=== PATIENT | male | born 1940 | race Caucasian/White ===

== ENCOUNTER 2017-11-16 04:44 | Outpatient (CLI) | payer SELFPAY ==
[2017-11-16 08:31] LABS: HEMOGLOBIN A1C 5.6 % (4.5-6.2)
[2017-11-16 08:45] LABS: CHOL/HDL RATIO 2.48 (0.00-4.99)
== END 2017-11-16 23:59 | disposition home or self-care (01) ==
LOC: HW HEART 04:44
DX: Z13.6 Encounter for screening for cardiovascular disorders (principal); I48.91 Unspecified atrial fibrillation; R00.2 Palpitations
CPT/HCPCS: 36415

== ENCOUNTER 2024-08-14 08:52 | Day surgery (SDC) | payer MEDICARE ==
[2024-08-10 11:39] LABS: BASOPHILS % (AUTO) 0.8 % (0-1); EOSINOPHILS # (AUTO) 0.1 X10'3 (0-0.9); EOSINOPHILS % (AUTO) 1.5 % (0-6); LYMPHOCYTES # (AUTO) 1.2 X10'3 (1.1-4.8); LYMPHOCYTES % (AUTO) 25.4 % (21-51); MEAN CORPUSCULAR HEMOGLOBIN 30.2 PG (27.0-31.0); MEAN CORPUSCULAR VOLUME 88.8 FL (78-98); MEAN PLATELET VOLUME 7.8 FL (7.4-10.4); MONOCYTES # (AUTO) 0.6 X10'3 (0-0.9); MONOCYTES % (AUTO) 13.2 % (2-12); NEUTROPHILS # (AUTO) 2.8 X10'3 (1.8-7.7); NEUTROPHILS % (AUTO) 59.1 % (42-75); PRE OP HEMATOCRIT 42.7 % (42.0-52.0); PRE OP HEMOGLOBIN 14.5 g/dL (14.0-17.9); PRE OP PLATELET COUNT 193 X10'3 (140-440); PRE OP WHITE BLOOD COUNT 4.7 10'3 (4.8-10.8); RED BLOOD COUNT 4.81 X10'6 (4.70-6.10); RED CELL DISTRIBUTION WIDTH 13.6 % (11.5-14.5)
[2024-08-10 13:00] LABS: ALBUMIN 4.1 G/DL (3.4-5.0); ALBUMIN/GLOBULIN RATIO 1.1 (1.1-1.5); ALKALINE PHOSPHATASE 82 IU/L (46-116); BLOOD UREA NITROGEN 13 MG/DL (7-18); BUN/CREATININE RATIO 15.1 (10.0-20.0); CALCIUM 8.9 MG/DL (8.5-10.1); CHLORIDE 103 MMOL/L (99-107); CREATININE 0.86 MG/DL (0.60-1.10); PRE OP ALT 29 U/L (30-65); PRE OP ANION GAP 8 (8-16); PRE OP AST 24 U/L (10-37); PRE OP BILIRUB, TOTAL 0.5 MG/DL (0.0-1.0); PRE OP GLUCOSE 96 MG/DL (70-104); PRE OP POTASSIUM 4.5 MMOL/L (3.4-5.1); PRE OP SODIUM 140 MMOL/L (135-145); TOTAL CARBON DIOXIDE 28.7 MMOL/L (24-32); TOTAL PROTEIN 7.8 G/DL (6.4-8.2); eGFR 85 ML/MIN
[2024-08-14] VITALS (9 sets, daily range): BP systolic 114–133; BP diastolic 65–89; PULSE 60–89; RESP 11–16; TEMP 96.5; O2SAT 93–97
[~2024-08-14] VITALS: Ht 177.8 cm; Wt 86.5 kg
[~2024-08-14 08:52] MED LIST: ALPR1TAB7 PO; APIX5TAB3 PO; AZEL137S4 BOTHNARES; COQ 10; FISH OIL; FLEC50TA PO; FLO0.4C PO; LEVO75TA PO; MAGNESIUM; PROBIOTIC; ROSU20TA98 PO; TUMERIC; VITAMIN C PO; VITAMIN D3; ZINC; ZOLP10TA PO
[2024-08-14] MEDS: ringers solution, lacted 1,000 ML IV SCH (09:34)
[2024-08-14] MEDS: famotidine 20mg tablet PO ONE (09:34)
[2024-08-14] MEDS: clindamycin 600mg/D5W 50ml 50 ML IV ONE (09:34)
[2024-08-14] MEDS ORDERED: LIDOcaine 2% (20mg/ml) 5ml vial ONE ×2 (09:42→10:07)
[2024-08-14] MEDS ORDERED: BUPIVAcaine/PF 2.5mg/ml (0.25%) 10ml vial ONE (09:42)
[2024-08-14] MEDS ORDERED: propofol 10mg/ml 20ml vial IV ONE (09:47)
[2024-08-14] MEDS ORDERED: fentaNYL/PF 50MCG/1 ML 2ML syringe ONE (09:56)
[2024-08-14] MEDS ORDERED: midazolam 1 mg/ML 2ml injection ONE (10:00)
== END 2024-08-14 11:18 | disposition home or self-care (01) ==
LOC: PRE-OP 08:52
PROVIDERS: ATTEND Orthopaedic Surgery Hand Surgery
DX: G56.01 Carpal tunnel syndrome, right upper limb (principal); I10 Essential (primary) hypertension; F41.9 Anxiety disorder, unspecified; E78.5 Hyperlipidemia, unspecified; Z98.890 Other specified postprocedural states; Z88.0 Allergy status to penicillin; Z88.8 Allergy status to other drugs, medicaments and biological substances; Z79.899 Other long term (current) drug therapy; Z72.89 Other problems related to lifestyle
CPT/HCPCS: 36415; 64721; 80053; 82948; 85025; 93005; A4215; A6449; J2003; J2250; J2704; J3010; J3490; J7030; J7120; Z7506; Z7512; Z7610